=== PATIENT | female | born 1950 | race Caucasian/White ===

== ENCOUNTER 2020-03-12 00:18 | Emergency (ER) | payer OTHER ==
[~2020-03-12] VITALS: Ht 154.9 cm; Wt 54.9 kg
[2020-03-12 00:32] VITALS: BP 198/98
[2020-03-12] MEDS ORDERED: MORPHINE SULFATE 2 MG/ML SYR IVP ONE (01:00)
[2020-03-12] MEDS ORDERED: ONDANSETRON 4 MG/2 ML VIAL IVP ONE (01:00)
[2020-03-12] MEDS ORDERED: PANTOPRAZOLE 40 MG INJ VIAL IVP ONE (01:00)
[2020-03-12] MEDS ORDERED: NACL 0.9% 1,000 ML IV ONE (01:00)
[2020-03-12 01:23] LABS: BASOPHILS % (AUTO) 0.4 % (0.0-2.0); EOSINOPHILS # (AUTO) 0.1 K/uL (0-0.4); EOSINOPHILS % (AUTO) 0.7 % (0.0-4.0); HEMATOCRIT 42.9 % (36-48); HEMOGLOBIN 14.2 g/dL (12.0-16.0); LYMPHOCYTES # (AUTO) 1.6 K/uL (2.5-16.5); LYMPHOCYTES % (AUTO) 14.4 % (20.5-51.1); MEAN CORPUSCULAR HEMOGLOBIN 30 pg (27-31); MEAN CORPUSCULAR HGB CONC 33 g/dL (33-37); MEAN CORPUSCULAR VOLUME 90.3 fL (80-94); MONOCYTES # (AUTO) 0.6 K/uL (0.8-1.0); MONOCYTES % (AUTO) 4.9 % (1.7-9.3); NEUTROPHILS # (AUTO) 8.9 K/uL (1.8-7.7); NEUTROPHILS % (AUTO) 79.6 % (42.2-75.2); PLATELET COUNT (AUTO) 266 K/uL (140-450); RED BLOOD CELL COUNT(AUTO) 4.75 MIL/uL (4.20-5.40); RED CELL DISTRIBUTION WIDTH 14.8 % (11.6-13.7); WHITE BLOOD COUNT (AUTO) 11.2 K/uL (4.8-10.8)
[2020-03-12 01:37] LABS: ANION GAP 13.6 (8-16); CARBON DIOXIDE 27.6 mmol/L (21-32); CREATININE 0.8 mg/dL (0.6-1.3); POTASSIUM 4.2 mmol/L (3.5-5.1)
[2020-03-12 01:43] LABS: ALBUMIN 3.8 g/dL (3.4-5.0); TOTAL BILIRUBIN 0.4 mg/dL (0.0-1.0)
[2020-03-12] MEDS ORDERED: ALUMINUM HYD/MAG/SIMETHICONE 30 ML, DICYCLOMINE HCL LIQUID 20 MG, LIDOCAINE VISCOUS 2% ... PO ONE ×3 (03:25)
[2020-03-12] MEDS ORDERED: ALUMINUM HYD/MAG/SIMETHICONE 30 ML UDC ONE (03:36)
[2020-03-12] MEDS ORDERED: LIDOCAINE VISCOUS 2% 20 ML UDC ONE (03:36)
[2020-03-12] MEDS ORDERED: DICYCLOMINE HCL LIQUID 10 MG/5 ML UDC ONE (03:37)
[2020-03-12 04:23] VITALS: BP 182/87
== END 2020-03-12 04:23 | disposition home or self-care (01) ==
LOC: MED 00:18
DX: R10.13 Epigastric pain (principal)
CPT/HCPCS: 36415; 71250; 74176; 80053; 83605; 83690; 84484; 85025; 93005; 96361; 96374; 96375; 99285; C9113; J2270; J2405; J7030